=== PATIENT | female | born 1950 | race Two or more races ===

== ENCOUNTER 2017-07-19 15:37 | Emergency (ER) | payer MEDICARE, BC ==
[~2017-07-19] VITALS: Wt 81.9 kg
[~2017-07-19 15:37] MED LIST: HYDR-3498 PO; IBUP-1542 PO; METF500T4 PO; SITA25TA3 PO
[2017-07-19] MEDS ORDERED: SULF1TAB31 PO (16:19)
[2017-07-19] MEDS ORDERED: IBUP400T22 PO (16:19)
[2017-07-19] MEDS ORDERED: CEPH-443 PO (16:19)
--- NOTE | 2017-07-19 16:28 | ERD ---
ER Documentation Chief Complaint Chief Complaint LEFT EAR PAIN X 5 DAYS HPI 67-year-old female patient with a past medical history of diabetes, hypertension , hyperlipidemia, depression presents to the ED complaining of a bump on the left side of her face. Patient reports that she had one in the back of her ear. Denies any recent swimming or using Q-tips. States that the one in the back of her ear has resolved. Reports it is painful near the front of her pain. Denies any fever, chills, odynophagia, change in phonation, nausea, vomiting, diarrhea, sinus pain, headache. ROS All systems reviewed and are negative except as per history of present illness. Medications Home Meds Active Scripts Ibuprofen* (Motrin*) 400 Mg Tab, 400 MG PO Q6, #30 TAB Prov:GRIFFIN DIA PA-C 07/19/17 Cephalexin* (Keflex*) 500 Mg Capsule, 500 MG PO QID for 7 Days, CAP Prov:GRIFFIN DIA PA-C 07/19/17 Sulfamethoxazole/Trimethoprim* (Bactrim Ds* Tablet) 1 Each Tablet, 1 TAB PO BID for 7 Days, #14 TAB Prov:GRIFFIN DIA PA-C 07/19/17 Ibuprofen* (Ibuprofen*) 600 Mg Tablet, 600 MG PO Q6 Y for PAIN, #20 TAB Prov:LUISITO MAST PA-C 04/17/15 Hydrocodone Bit-Acetaminophen* ([place]*) 5-325 Mg Tab, 1 TAB PO Q4H Y for PAIN, # 20 TAB Prov:LUISITO MAST PA-C 04/17/15 Reported Medications Sitagliptin* (Januvia*) 25 Mg Tablet, 25 MG PO DAILY, TAB 04/17/15 Metformin Hcl* (Metformin Hcl*) 500 Mg Tablet, 500 MG PO WITH BREAKFAST, TAB 04/17/15 PMhx/Soc History of Surgery: No Hx Alcohol Use: No Hx Substance Use: No Smoking Status: Never smoker Physical Exam Vitals Vital Signs Date Time Temp Pulse Resp B/P Pulse Ox O2 Delivery O2 Flow Rate FiO2 07/19/17 15:39 98.1 79 18 112/78 99 Physical Exam Const: Enp-pax-mwhoxrpdg, well-nourished. In no acute distress. Head: Atraumatic, normocephalic Eyes: Normal Conjunctiva without injection. No purulent discharge. PERRL. EOMI ENT: Normal external ear. Ear canal without erythema. Tympanic membrane pearly ramírez without effusion or bulging. Nasal canal clear with normal turbinates. Moist oropharynx without tonsillar exudates. Non-erythematous pharynx. Uvula midline. No drooling. No trismus. Mobile tender erythematous mobile preauricular lymphadenopathy. No fluctuance or induration. Neck: Full range of motion. No meningismus. No cervical lymphadenopathy. Resp: Clear to auscultation bilaterally. No wheezing, rhonchi, rales, or crackles. No accessory muscle use. No retractions. Cardio: Regular rate and rhythm. No murmurs, rubs or gallops. Abd: Soft, non tender, non distended. Normal bowel sounds. No palpable masses. No rebound tenderness. No guarding. Skin: No petechiae or rashes Back: No midline tenderness. No CVA tenderness. Ext: No cyanosis, or edema. Neur: Awake and alert. Psych: Normal Mood and Affect Procedures/MDM 67-year-old past medical history of diabetes presents to the ED complaining of a bump to the front of her left ear that started 5 days ago. Patient is afebrile and nontoxic-appearing. Patient has normal vital signs. She likely has a swollen preauricular lymph node. It is erythematous and painful to touch. Patient's physical exam include lungs which were clear to auscultation and a normal pulse oximetry. Bilateral ears pearly cast. No tenderness to palpation of tragus or mastoid. Low suspicion for mastoiditis, otitis externa, otitis media. Patient is speaking in full sentences. There is a low suspicion for pneumonia, epiglottitis, croup, sinusitis, peritonsillar abscess, hands foot mouth disease, scarlet fever, Kawasaki disease, Jl's angina, retropharyngeal abscess, meningitis, sepsis, acute abdomen or other emergent conditions. Discharge medications: Ibuprofen, Keflex, Bactrim Follow up with primary care physician in 1-2 days. Instructed patient to return to the ED sooner for any worsening symptoms. Patient's questions were answered. Patient understood and agreed with discharge plan. Patient discharged stable. Departure Diagnosis: Primary Impression: Swelling of lymph node Condition: Stable Patient Instructions: When Your Child Has Swollen Lymph Nodes Referrals: COMMUNITY CLINICS YOU HAVE RECEIVED A MEDICAL SCREENING EXAM AND THE RESULTS INDICATE THAT YOU DO NOT HAVE A CONDITION THAT REQUIRES URGENT TREATMENT IN THE EMERGENCY DEPARTMENT. FURTHER EVALUATION AND TREATMENT OF YOUR CONDITION CAN WAIT UNTIL YOU ARE SEEN IN YOUR DOCTORS OFFICE WITHIN THE NEXT 1-2 DAYS. IT IS YOUR RESPONSIBILITY TO MAKE AN APPOINTMENT FOR FOLOW-UP CARE. IF YOU HAVE A PRIMARY DOCTOR --you should call your primary doctor and schedule an appointment IF YOU DO NOT HAVE A PRIMARY DOCTOR YOU CAN CALL OUR PHYSICIAN REFERRAL HOTLINE AT IF YOU CAN NOT AFFORD TO SEE A PHYSICIAN YOU CAN CHOSE FROM THE FOLLOWING [facility] [address] [facility] [address] [facility] [facility] [address] [facility] [address] [facility]. [facility] [address] [facility]. [facility] [address] [facility] [facility] YOU HAVE RECEIVED A MEDICAL SCREENING EXAM AND THE RESULTS INDICATE THAT YOU DO NOT HAVE A CONDITION THAT REQUIRES URGENT TREATMENT IN THE EMERGENCY DEPARTMENT. FURTHER EVALUATION AND TREATMENT OF YOUR CONDITION CAN WAIT UNTIL YOU ARE SEEN IN YOUR DOCTORS OFFICE WITHIN THE NEXT 1-2 DAYS. IT IS YOUR RESPONSIBILITY TO MAKE AN APPOINTMENT FOR FOLOW-UP CARE. IF YOU HAVE A PRIMARY DOCTOR --you should call your primary doctor and schedule and appointment IF YOU DO NOT HAVE A PRIMARY DOCTOR YOU CAN CALL OUR PHYSICIAN REFERRAL HOTLINE AT . IF YOU CAN NOT AFFORD TO SEE A PHYSICIAN YOU CAN CHOSE FROM THE FOLLOWING [facility] INSTITUTIONS: [facility] [address] [place] [address] [facility] [address] [place] [address] [facility] [address] [place] [address] [facility] URGENT CARE/SPECIALTIES Additional Instructions: FOLLOW UP WITH YOUR PRIMARY CARE PHYSICIAN TOMORROW.Return to this facility if you are not improving as expected. GRIFFIN DIA PA-C Jul 19, 2017 16:28
== END 2017-07-19 16:32 | disposition home or self-care (01) ==
LOC: FTE 15:37
DX: R59.9 Enlarged lymph nodes, unspecified (principal); I10 Essential (primary) hypertension; E11.9 Type 2 diabetes mellitus without complications; Z79.84 Long term (current) use of oral hypoglycemic drugs
CPT/HCPCS: 99284

== ENCOUNTER 2018-08-26 10:33 | Emergency (ER) | END 2018-08-26 14:13 | disposition home or self-care (01) ==